=== PATIENT | female | born 1945 | race Caucasian/White ===

== ENCOUNTER → 2021-03-08 | Outpatient (CLI) | payer OTHER ==
[~2021-03-08] MED LIST: ALPRAZOLAM XR3 MG PO; LODINE400 M1 PO; LOVASTATIN 20 M20 MG PO; METOPROLOL SUCC50 MG PO; NEXIUM 40 MG CA40 M1 PO; TRIAMTERENE/HCT1 CA1 PO
[2021-03-08 09:05] LABS: HEMATOCRIT 42.2 % (37.0-47.0); HEMOGLOBIN 14.1 gm/dL (12.0-15.0); MCH 30.9 pg (26.0-34.0); MCHC 33.3 g/dL (28.0-37.0); MCV 92.7 fL (80.0-100.0); MPV 7.9 fl. (7.2-11.1); RBC 4.56 mil/uL (4.20-5.00); RDW-CV 14.4 % (10.5-14.5); WBC 6.9 thou/uL (4.0-11.0)
[2021-03-08 09:15] LABS: INR 0.9
[2021-03-08 09:18] LABS: URINE CLARITY CLEAR; URINE COLOR YELLOW; URINE GLUCOSE-RANDOM NEGATIVE (Negative); URINE KETONES NEGATIVE (Negative); URINE LEUKOCYTES-REFLEX 1+ (Negative); URINE NITRITE-REFLEX NEGATIVE (Negative); URINE PROTEIN NEGATIVE (Negative); URINE SPECIFIC GRAVITY <= 1.005 (1.005-1.030); URINE UROBILINOGEN 0.2 E.U./dl (0.2-1.0)
[2021-03-08 09:19] LABS: URINE BILIRUBIN 2+ (Negative); URINE BLOOD NEGATIVEN (Negative)
[2021-03-08 09:33] LABS: BACTERIA-REFLEX 1-9 Few /HPF (None Seen); CASTS None Seen /LPF (None Seen); CRYSTALS None Seen /LPF (None Seen); MUCUS None Seen strn/LPF (None Seen); SQUAMOUS 0-3 Few /LPF (0-3); URINE RBC 0-2 Rare /HPF (0-2); URINE WBC-REFLEX 0-5 Rare /HPF (0-5)
[2021-03-08 09:54] LABS: ALBUMIN 3.6 g/dL (3.4-5.0); CALCIUM 9.6 mg/dL (8.5-10.1); CREATININE 1.1 mg/dL (0.6-1.3); POTASSIUM 3.8 mmol/L (3.5-5.1); TOTAL BILIRUBIN 0.6 mg/dL (<0.1-1.0); TOTAL PROTEIN 6.8 g/dL (6.4-8.2)
--- NOTE | 2021-03-08 10:25 | EKG ---
[place] [address] ELECTROCARDIOGRAM REPORT Name: ASHOK MA Room: [facility]#: [id number] Admission: 03/08/21 Attend Phys: Rom Hardy, Discharge: Date of : 41 Date of Service: 03/08/21944 Report #: [id number] THIS REPORT FOR: //name// [facility] Test Date: 2021-03-08 Test Time: 09:45:16 Pat Name: ASHOK MA Department: Room: Gender: [employer] Supervisor: ALC : 1945 Requested By: Rom Hardy Order Number: [id number] MD: Adal Alfaro Measurements Intervals [place] Rate: 66 P: 63 W[place]: 145 QRS: 12 QRSD: 98 T: 32 QT: 405 QTc: 425 Interpretive Statements Sinus rhythm No previous ECG available for comparison Electronically Signed On 03-08-2021 10:25:25 CDT by Adal Alfaro [email or web address] <ELECTRONICALLY SIGNED> By: Adal Alfaro MD, [facility] 03/08/21 1025 0945 Adal Alfaro MD, FACC /EPI
== END ==
LOC: M.LAB 08:08
PROVIDERS: ATTEND Orthopaedic Surgery
DX: Z01.818 Encounter for other preprocedural examination (principal); Z01.812 Encounter for preprocedural laboratory examination; M19.012 Primary osteoarthritis, left shoulder

== ENCOUNTER → 2021-03-22 | Day surgery (SDC) | payer OTHER ==
[~2021-03-22] VITALS: Ht 162.6 cm; Wt 68.9 kg
[~2021-03-22] MED LIST changes: +PERCOCET 5-3251 EACH PO; +XARELTO10 M1 PO
--- NOTE | ~2021-03-22 | H ---
[address] [address] HISTORY AND PHYSICAL Name: ASHOK MA Room: [address] Angelique Hernandez#: [id number] Admission: 03/22/21 Attend Phys: Parker Kearney Discharge: 03/22/21 Date of : 41 Report #: [id number] THIS REPORT FOR: cc: ONDINA MOURA CHRISTOPHER F DO [facility],Medical Records Staff ~ Please refer to the History and Physical performed in the orthopedic physician's office. By: 04Medical Records Staff RAÚL /BRENT
--- NOTE | 2021-03-28 11:14 | OP ---
[facility] [address] [place] [address] OPERATIVE REPORT Name: ASHOK MA Room: [address] David#: [id number] Admission: 03/22/21 Attend Phys: Parker Kearney Discharge: 03/22/21 Date of : 41 Report #: [id number] THIS REPORT FOR: cc: ONDINA MOURA CHRISTOPHER F DO Greiner, Robert F. II DO ~ PREOPERATIVE DIAGNOSIS: Right shoulder osteoarthritis. POSTOPERATIVE DIAGNOSIS: Right shoulder osteoarthritis. PROCEDURE: Right reverse total shoulder arthroplasty. SURGEON: Rom Hardy II, DO. STEAM FITTER HELPER: CHACE Campa. ANESTHESIA: Per operative record. ESTIMATED BLOOD LOSS: 50 mL. ANTIBIOTICS: Per operative record. DRAINS: None. COMPLICATIONS: None. CONDITION: The patient stable to recovery room. IMPLANTS: Lori reverse total shoulder arthroplasty system. DESCRIPTION OF PROCEDURE: The patient was taken to the operative suite, placed supine on the operating table, given appropriate anesthesia. The patient's affected shoulder was sterilely prepped and draped in modified beach chair position. All bony prominences well padded. Surgery began by deltopectoral incision, was carried down to subcutaneous tissues. The deltoid was retracted laterally, taking care to avoid injury to the cephalic vein. The subscapularis was then reflected off of the humerus and the shoulder was dislocated anteriorly. Intramedullary guides were then reamed in appropriate fashion up to appropriate size, which showed a size 10 with good chatter and fit and fill within the canal. The head and neck cutting alignment guide was then applied and appropriate cut to the head was made in appropriate angulation. This was then broached up to a size 10. Size 10 fit very well and was left in place with the hub cap to cover it and protect it while attention was turned to the glenoid. Retractor was placed along the posterior and anterior portions of the glenoid. Excess labrum was removed. The patient [place] [address] OPERATIVE REPORT Name: ASHOK MA Room: [address] M.R.#: [id number] Admission: 03/22/21 Attend Phys: Parker Kearney Discharge: 03/22/21 Date of : 41 Report #: [id number] in this region with significant osteoarthritis as well. A central guide pin was then placed in a more inferior direction. This was then reamed in appropriate fashion with the circular reamers down to punctate bleeding. The glenoid baseplate was then applied and secured with a central screw. Three further screws were then placed in the superior, inferior, and posterior aspects. An appropriate eccentric glenosphere was then impacted in appropriate position. Attention was turned back to the humerus. A trial was then performed with appropriate reverse shoulder polyethylene up to appropriate fit and fill. These were then selected, malleted together on the back table and locked and impacted into the humerus, once again reduced and showed excellent fit and fill and excellent flexion, extension and internal rotation. Irrigation then performed of the wound. Electrocautery was utilized for hemostasis. The deltopectoral interval was reapproximated utilizing #1 Vicryl in running fashion. Skin was closed with 2-0 Vicryl, running Monocryl stitch. Dermabond dressing applied. The patient was placed in a shoulder abduction sling and transported to recovery in stable condition. Counts were correct. <ELECTRONICALLY SIGNED> By: Rom Hardy II, DO 03/28/21 1114 [id number] [id number] Hardy II, DO /nt
== END | disposition home or self-care (01) ==
LOC: M.ORTHSURG → EDSTATUS 03:38 → M.ORTHSURG 06:06 → M.SUR 06:06 → M.TBA 06:06 → M.ORTHSURG 15:23
PROVIDERS: ATTEND Orthopaedic Surgery
DX: M19.011 Primary osteoarthritis, right shoulder (principal); M25.511 Pain in right shoulder; I10 Essential (primary) hypertension; E78.5 Hyperlipidemia, unspecified; I25.2 Old myocardial infarction; Z98.890 Other specified postprocedural states; Z79.899 Other long term (current) drug therapy; Z96.651 Presence of right artificial knee joint; Z20.822 Contact with and (suspected) exposure to COVID-19; Z90.710 Acquired absence of both cervix and uterus; Z90.49 Acquired absence of other specified parts of digestive tract; Z88.0 Allergy status to penicillin; Z88.8 Allergy status to other drugs, medicaments and biological substances